=== PATIENT | female | born 1955 | race African-American/Black ===

== ENCOUNTER 2019-05-18 16:39 | Emergency (ER) | payer OTHER ==
[~2019-05-18] VITALS: Ht 170.2 cm; Wt 86.0 kg
[~2019-05-18 16:39] MED LIST: AMLODIPINE; ASPI-1393 PO; BENAZEPRIL; DICLOFENAC; GABA-531 PO; GLIPIZIDE; LISI10TA5 PO; METFORMIN; OMEPRAZOLE
[2019-05-18] MEDS ORDERED: ACETAMINOPHEN 325MG TABLET PO ONE (19:00)
[2019-05-18 20:24] VITALS: BP 163/91
== END 2019-05-18 20:30 | disposition home or self-care (01) ==
LOC: ER 16:39
DX: R51 Headache (principal); M25.512 Pain in left shoulder; M79.662 Pain in left lower leg; I10 Essential (primary) hypertension; E11.9 Type 2 diabetes mellitus without complications; E78.5 Hyperlipidemia, unspecified; Z90.710 Acquired absence of both cervix and uterus; Z79.82 Long term (current) use of aspirin; Z79.899 Other long term (current) drug therapy; V49.88XA Car occupant (driver) (passenger) injured in other specified transport accidents, initial encounter; Y93.89 Activity, other specified; Y92.89 Other specified places as the place of occurrence of the external cause; Y99.8 Other external cause status
CPT/HCPCS: 73502; 82962; 99284